=== PATIENT | female | born 1950 | race African-American/Black ===

== ENCOUNTER 2016-06-18 19:53 | Inpatient (IN) | payer OTHER ==
[~2016-06-18] VITALS: Ht 149.9 cm; Wt 66.1 kg
--- NOTE | ~2016-06-18 | EKG ---
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
--- NOTE | ~2016-06-18 | P ---
[facility] [place] [address] PROCEDURE REPORT Name: GOLDENJEAN John Room #: 442-P ADM IN M.R.#: [id number] Admission: 06/18/16 Attend Phys: Dat Son MD Discharge: Date of : 48 Report #: [id number] THIS REPORT FOR: //name// CC: Jacinto Son MD DATE OF SERVICE: 06/19/2016 PROCEDURE PERFORMED: Colonoscopy. HISTORY OF PRESENT ILLNESS: The patient is a 65-year-old female with recent hematochezia. CT scan shows diverticulosis with possible mild to moderate diverticulitis. The patient is on antibiotics at this time. She has had a drop in her hemoglobin. She has had a recent syncopal episode. DESCRIPTION OF PROCEDURE: The risks and benefits of the procedure were explained to the patient, those risks including but not limited to bleeding, perforation, the risk of sedation. She understood these risks and gave informed consent. Sedation was given using propofol per anesthesia. Next, a digital rectal exam was initially performed, which was normal. Next, using a standard Fujinon colonoscope, the scope was placed in the patient's anus and advanced under direct vision to the cecum. The overall prep was good. There was scattered light bright red blood throughout the colon today. The cecum and ileocecal valve were normal in appearance. A few scattered diverticula were noted in the ascending and transverse colon, but no active bleeding, no colitis, otherwise normal. In the descending and mostly in the sigmoid colon, multiple diverticula were noted. There was some surrounding erythema in an area in the sigmoid colon, no purulent drainage was noted. This may be consistent with diverticulitis. There was no active bleeding, but again blood was noted scattered throughout this area. The rectal mucosa was normal on retroflexion, small nonbleeding internal hemorrhoids were also noted. At this point, the scope was then withdrawn and colonoscopy was terminated. Because the patient is on aspirin, I decided to proceed with an upper endoscopy as well. Next, using a standard ESTmobn upper endoscope, the scope was placed in the patient's mouth and advanced under direct vision through the esophagus, stomach and into the second portion of the duodenum. The patient's larynx and esophagus looked normal throughout. The GE junction was normal. Upon entering the stomach, a small hiatal hernia was noted. Overall, the gastric mucosa was normal in the fundus and body; however, in the antrum, several small clean white based ulcers 2-3 mm were noted in size as well as a few erosions. There was no evidence of bleeding. The pylorus was normal and patent. The duodenal bulb, first and second portion were all normal. The scope was then withdrawn and the procedure terminated. The patient tolerated the procedure well. [address] [address] PROCEDURE REPORT Name: FRANKSJEAN Room #: 442-P [facility] IN M.R.#: [id number] Admission: 06/18/16 Attend Phys: Dat Son MD Discharge: Date of : 48 Report #: [id number] IMPRESSION: 1. Small antral ulcers and erosions, no evidence of active bleeding. 2. Otherwise, normal upper endoscopy. RECOMMENDATIONS: 1. Continue antibiotics for diverticulitis. 2. Continue to monitor the patient post-procedure, it appears that bleeding has stopped at this time. 3. Continue PPI therapy. 4. We will check a stool H. pylori antigen test as well. Thank you for allowing me to participate in her care. <ELECTRONICALLY SIGNED> By: Jacinto Crocker MD 06/19/16 1937 1356 1427 Jacinto Crocker MD /nt
--- NOTE | ~2016-06-18 | HC ---
[facility] [place] [address] CONSULTATION Name: FRANKSJEAN D Room #: 442-P [facility] IN ..#: [id number] Admission: 06/18/16 Attend Phys: Dat Son MD Discharge: Date of : 48 Report #: [id number] THIS REPORT FOR: //name// CC: Jacinto PaniaguaRomain Son MD DATE OF SERVICE: 06/19/2016 HISTORY OF PRESENT ILLNESS: The patient is a 65-year-old female with recent syncopal episode. She also complains of bright red blood per rectum, began having bloody stools yesterday and was evaluated in the emergency room. She was complaining of some abdominal pain as well prior to bowel movements. She is on aspirin 325 mg per day. Denies any nausea, vomiting or dysphagia. No significant history of reflux. No history of heartburn. She believes her last colonoscopy was approximately 4 years ago with diverticulosis. ALLERGIES: MACROBID. PAST MEDICAL HISTORY: Hypertension, history of diverticulitis, urinary tract infections and history of cardiac stent placement. MEDICATIONS: At home, amlodipine, vitamin D, estrogen, Prilosec 20 mg every day, Toprol, simethicone, aspirin 325, tramadol, multivitamin and Flonase. REVIEW OF SYSTEMS: As per HPI. SOCIAL HISTORY: She denies any tobacco use. She reports occasional alcohol use. FAMILY HISTORY: Negative for colon cancer. PHYSICAL EXAMINATION: VITAL SIGNS: Temperature is 98.6, pulse 93, blood pressure 138/60 and respiratory rate is 18. GENERAL: She is alert and oriented times 3, in no acute distress. HEENT: Sclerae nonicteric. Oropharynx clear. NECK: Supple, without lymphadenopathy. CARDIOVASCULAR: Regular rate and rhythm. CHEST: Clear to auscultation bilaterally. ABDOMEN: Soft. She is mildly tender to palpation diffusely. Nondistended. Normoactive bowel sounds. EXTREMITIES: No cyanosis, clubbing or edema. LABORATORY DATA: Sodium 146, potassium 4.2, chloride 107, bicarbonate 31, BUN [facility] [address] [place] [address] CONSULTATION Name: JEAN FRANKS Room #: 442-P ADM IN [facility]#: [id number] Admission: 06/18/16 Attend Phys: Dat Son MD Discharge: Date of : 48 Report #: [id number], creatinine 0.8 and glucose 131. AST is 22, total bilirubin 0.3, alkaline phosphatase 74 and ALT 28. Albumin 2.9. Troponin less than 0.04. WBC is 7.1, hemoglobin 10.2 and her hemoglobin was 13.0 on admission and platelet count is 254,000. CT scan of the abdomen and pelvis on admission, diffuse colonic diverticulosis seen more so in the distal descending colon and sigmoid regions, wall thickening and edema in the mid sigmoid colon with slight stranding compatible with diverticulitis and hmpu-az-hkvztrxr diverticulitis. No bowel obstruction noted. ASSESSMENT AND PLAN: Hematochezia, intermittent abdominal pain, suspect diverticular bleed. The patient may have diverticulitis as well. Would recommend proceeding with colonoscopy; she was prepped last evening. We will also proceed with an upper endoscopy as she has had syncopal episodes and has been on aspirin as well. We will make further recommendations after endoscopy. In the meantime, agree with Chelsea and Rafael, which the patient is currently on at this time. Thank you for allowing me to participate in her care. <ELECTRONICALLY SIGNED> By: Jacinto Crocker MD 06/19/16 1931 1353 1409 Jacinto Crocker MD /nt
[~2016-06-18 19:53] MED LIST: AMBEREN; AMLODIPINE BESY10 MG PO; AMOXICILLIN 50500 M1; ASPIRIN325 PO; AUGMENTIN 875875 MG PO; DOXYCYCLINE 10100 MG PO; ESTROVEN REGU400 MCG PO; FLAGYL500 MG PO; GAS-X125 MG PO; LOSARTAN POTAS100 MG PO; LOSARTAN-HCTZ1 EAC1; MEDROL DOSPAK21 TAB PO; MINIPRIN81 MG PO; MOBIC15 MG PO; MUCINEX600 MG PO; NITROGLYCERIN0.4 MG PO; NORCO 5-325 TA1 EACH PO; PERMETHRIN60 GM TOP; PRILOSEC 20 MG20 MG PO; PRILOSEC2.5 MG; TOPROL XL25 MG PO; TRAMADOL 50 MG50 MG PO; TRIAMCINOLONE 080 G3 TOP; TRIAMCINOLONE A15 G1 TP; VITAMIN D400 UNI1; ZANAFLEX2 M1 PO; [UNRECOGNIZED DRUG - REMARK] PO
[2016-06-18 19:54] VITALS: BP 166/64
[2016-06-18] MEDS ORDERED: FLONASE 0.05%50 MCG NASAL (20:22)
[2016-06-18 20:31] LABS: ABSOLUTE NEUTROPHILS 3.4 thou/uL (1.4-8.2); BASOPHILS 0.8 % (0.0-2.0); EOSINOPHILS 1.6 % (0.0-3.0); HEMATOCRIT 31.5 % (37.0-47.0); HEMOGLOBIN 10.7 gm/dL (12.0-15.0); LYMPHOCYTES 35.7 % (24.0-44.0); MCH 28.5 pg (26.0-34.0); MCHC 33.9 % (28.0-37.0); MCV 84.2 fL (80.0-100.0); MONOCYTES 10.4 % (1.0-8.0); PLATELET COUNT 264 thou/uL (150-400); POLYS 51.5 % (36.0-66.0); RBC 3.74 mil/uL (4.20-5.00); RDW 13.5 % (10.5-14.5); WBC 6.5 thou/uL (4.0-11.0)
[2016-06-18 20:32] LABS: MANUAL DIFF NO
[2016-06-18 20:35] LABS: ANION GAP 8 mmol/L (7-16); BUN 17 mg/dL (7-18); CALCIUM 8.9 mg/dL (8.5-10.1); CHLORIDE 105 mmol/L (98-107); CO2 30 mmol/L (21-32); CREATININE 0.9 mg/dL (0.6-1.3); GLUCOSE 155 mg/dL (70-99); POTASSIUM 3.2 mmol/L (3.5-5.1); SODIUM 143 mmol/L (136-145)
[2016-06-18 20:43] LABS: ALBUMIN 3.1 g/dL (3.4-5.0); ALKALINE PHOSPHATASE 77 U/L (46-116); MAGNESIUM 1.5 mg/dL (1.8-2.4); SGOT 30 U/L (15-37); SGPT 33 U/L (30-65); TOTAL BILIRUBIN 0.4 mg/dL (<0.1-1.0); TOTAL PROTEIN 7.2 g/dL (6.4-8.2); TROPONIN-I < 0.04 ng/mL (<0.04-0.07)
[2016-06-18 22:46] VITALS: BP 173/74
[2016-06-18 23:00] VITALS: BP 147/74
[2016-06-19 02:02] LABS: HEMATOCRIT 29.5 % (37.0-47.0); HEMOGLOBIN 9.9 gm/dL (12.0-15.0); MCH 28.4 pg (26.0-34.0); MCHC 33.7 % (28.0-37.0); MCV 84.3 fL (80.0-100.0); RBC 3.5 mil/uL (4.20-5.00); RDW 13.6 % (10.5-14.5); WBC 7.1 thou/uL (4.0-11.0)
[2016-06-19 02:33] LABS: ALBUMIN 2.9 g/dL (3.4-5.0); ALKALINE PHOSPHATASE 74 U/L (46-116); ANION GAP 8 mmol/L (7-16); BUN 13 mg/dL (7-18); CALCIUM 8.8 mg/dL (8.5-10.1); CHLORIDE 107 mmol/L (98-107); CO2 31 mmol/L (21-32); CREATININE 0.8 mg/dL (0.6-1.3); GLUCOSE 131 mg/dL (70-99); POTASSIUM 4.2 mmol/L (3.5-5.1); SGOT 22 U/L (15-37); SGPT 28 U/L (30-65); SODIUM 146 mmol/L (136-145); TOTAL BILIRUBIN 0.3 mg/dL (<0.1-1.0); TOTAL PROTEIN 6.5 g/dL (6.4-8.2); TROPONIN-I < 0.04 ng/mL (<0.04-0.07)
[2016-06-19 04:00] VITALS: BP 179/84
[2016-06-19 07:49] LABS: HEMATOCRIT 30.7 % (37.0-47.0); HEMOGLOBIN 10.2 gm/dL (12.0-15.0)
[2016-06-19 07:57] VITALS: BP 163/94
[2016-06-19 12:00] VITALS: BP 138/60
[2016-06-19 16:00] VITALS: BP 144/100
[2016-06-19 19:34] LABS: HEMOGLOBIN 9.8 gm/dL (12.0-15.0)
[2016-06-19 19:45] VITALS: BP 137/65
[2016-06-20 01:41] LABS: HEMATOCRIT 26.4 % (37.0-47.0); HEMOGLOBIN 8.7 gm/dL (12.0-15.0)
[2016-06-20 03:30] VITALS: BP 133/59
[2016-06-20 08:25] VITALS: BP 135/73
[2016-06-20 11:35] VITALS: BP 132/78
[2016-06-20 16:50] VITALS: BP 141/75
[2016-06-20 20:11] VITALS: BP 144/73
[2016-06-21 03:58] VITALS: BP 136/78
[2016-06-21 04:42] LABS: HEMATOCRIT 25.9 % (37.0-47.0); HEMOGLOBIN 8.6 gm/dL (12.0-15.0); MCH 28.5 pg (26.0-34.0); MCHC 33.1 % (28.0-37.0); PLATELET COUNT 235 thou/uL (150-400); RBC 3.02 mil/uL (4.20-5.00); RDW 13.7 % (10.5-14.5); WBC 4.6 thou/uL (4.0-11.0)
[2016-06-21 04:44] LABS: MANUAL DIFF YES
[2016-06-21 04:55] LABS: CALCIUM 8.9 mg/dL (8.5-10.1); CREATININE 0.9 mg/dL (0.6-1.3); POTASSIUM 3.6 mmol/L (3.5-5.1)
[2016-06-21 07:02] LABS: ABSOLUTE NEUTROPHILS 2.3 thou/uL (1.4-8.2); PLATELET ESTIMATE NORMAL; TOTAL CELL COUNT 100
[2016-06-21 08:19] VITALS: BP 149/94
[2016-06-21] MEDS ORDERED: PANTOPRAZOLE SO40 M1 PO (09:05)
[2016-06-21] MEDS ORDERED: CIPRO500 MG PO (09:05)
[2016-06-21] MEDS ORDERED: FLAGYL 250 MG250 MG PO (09:05)
[2016-06-21 12:31] VITALS: BP 170/92
[2016-06-21 16:54] VITALS: BP 137/86
[2016-06-21 20:05] VITALS: BP 144/79
[2016-06-22 05:02] VITALS: BP 122/79
[2016-06-22 08:00] VITALS: BP 177/94
[2016-06-22 10:35] VITALS: BP 122/79
[2016-06-22 14:25] VITALS: BP 122/79
[2016-06-22 15:27] LABS: HEMATOCRIT 29.9 % (37.0-47.0); HEMOGLOBIN 10.1 gm/dL (12.0-15.0)
== END 2016-06-22 16:20 | disposition home or self-care (01) | DRG 378 ==
LOC: ER 19:53 → 4S 21:42 → EROBS 21:42 → 4S 22:47
PROVIDERS: Emergency Medicine; Family Medicine; Nurse Practitioner Acute Care
PROC: 0DJ08ZZ Inspection of Upper Intestinal Tract, Via Natural or Artificial Opening Endoscopic (ICD-10-PCS; principal; 2016-06-19)
PROC: 0DJD8ZZ Inspection of Lower Intestinal Tract, Via Natural or Artificial Opening Endoscopic (ICD-10-PCS; principal; 2016-06-19)
DX: K57.33 Diverticulitis of large intestine without perforation or abscess with bleeding (principal); D62 Acute posthemorrhagic anemia; R55 Syncope and collapse; D64.9 Anemia, unspecified; E87.6 Hypokalemia; I10 Essential (primary) hypertension; E83.42 Hypomagnesemia; I25.10 Atherosclerotic heart disease of native coronary artery without angina pectoris; M17.10 Unilateral primary osteoarthritis, unspecified knee; K92.1 Melena; K25.4 Chronic or unspecified gastric ulcer with hemorrhage; Z79.82 Long term (current) use of aspirin; Z95.5 Presence of coronary angioplasty implant and graft; Z88.1 Allergy status to other antibiotic agents; Z23 Encounter for immunization
CPT/HCPCS: 10100; 62110; 62900; 70005

== ENCOUNTER 2017-06-04 03:50 | Emergency (ER) | payer OTHER ==
[~2017-06-04] VITALS: Ht 149.9 cm; Wt 69.8 kg
--- NOTE | ~2017-06-04 | EEG ---
[facility] [address] [place] [address] ELECTROENCEPHALOGRAM Name: JEAN FRANKS [id number] Admission: 06/04/17 Attend Phys: Discharge: 06/04/17 Date of : 48 Report #: [id number] THIS REPORT FOR: //name// CC: Kelly Contreras DATE OF SERVICE: 06/04/2017 This patient is being evaluated for seizure disorder. EEG is being done to further evaluate that. EEG was done by placing the electrodes by standard 10-20 system of electrode placement. Both referential and sequential montages were used for recording. Background activity in this patient's EEG is about 9-10 Hz and 30 microvolt. It is a symmetrical activity. Photic stimulation was unremarkable. Part of the EEG is slow, indicating that she may be asleep that time, but the patient is not very responsive to be certain about that. Throughout the record, no active epileptiform activity was noticed. IMPRESSION: In spite of the patient's seizures, the EEG did not show any active epileptiform activity. It might be mentioned that EEG can be normal in a patient with a seizure disorder and therefore further workup is recommended. Thank you very much for this referral. <ELECTRONICALLY SIGNED> By: Christian Ross MD 06/11/17 0944 1457 1510 Christian Ross MD /sadie
--- NOTE | ~2017-06-04 | EKG ---
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
[~2017-06-04 03:50] MED LIST changes: +CIPRO500 MG PO; +FLAGYL 250 MG250 MG PO; +FLONASE 0.05%50 MCG NASAL; +PANTOPRAZOLE SO40 M1 PO
[2017-06-04 03:51] VITALS: BP 140/86
[2017-06-04 04:37] LABS: HEMATOCRIT 35.3 % (37.0-47.0); HEMOGLOBIN 11.6 gm/dL (12.0-15.0); MCH 28.4 pg (26.0-34.0); MCV 86.1 fL (80.0-100.0); RBC 4.1 mil/uL (4.20-5.00); RDW 15.5 % (10.5-14.5); WBC 4.9 thou/uL (4.0-11.0)
[2017-06-04 04:45] LABS: CALCIUM 9.5 mg/dL (8.5-10.1); CREATININE 0.8 mg/dL (0.6-1.0); POTASSIUM 3.2 mmol/L (3.5-5.1)
[2017-06-04 04:45] LABS: URINE BILIRUBIN NEGATIVE (Negative); URINE BLOOD TRACE (Negative); URINE COLOR YELLOW; URINE GLUCOSE-RANDOM* NEGATIVE (Negative); URINE KETONES NEGATIVE (Negative); URINE LEUKOCYTES-REFLEX NEGATIVE (Negative); URINE PROTEIN (DIPSTICK) NEGATIVE (Negative); URINE UROBILINOGEN 0.2 E.U./dl (0.2-1.0)
[2017-06-04 04:54] LABS: TROPONIN-I 0.04 ng/mL (<0.06)
[2017-06-04 05:02] LABS: AMP/METHAMP Negative (Negative); BARBITURATES Negative (Negative); BENZODIAZEPINES POSITIVE (Negative); COCAINE Negative (Negative); METHADONE Negative (Negative); OPIATES Negative (Negative); PCP Negative (Negative)
[2017-06-04 06:55] VITALS: BP 145/85
[2017-06-04 08:53] VITALS: BP 180/81
== END 2017-06-04 08:54 | disposition short-term general hospital (02) ==
LOC: ER 03:50 → EROBS 06:08
PROVIDERS: Emergency Medicine
DX: R41.82 Altered mental status, unspecified (principal); G40.89 Other seizures; I10 Essential (primary) hypertension; M19.90 Unspecified osteoarthritis, unspecified site; Z87.440 Personal history of urinary (tract) infections; Z88.8 Allergy status to other drugs, medicaments and biological substances

== ENCOUNTER 2017-08-30 10:21 | Inpatient (IN) | payer OTHER ==
[~2017-08-30] VITALS: Ht 160 cm; Wt 70.8 kg
--- NOTE | ~2017-08-30 | HC ---
[facility] [place] [address] CONSULTATION Name: GOLDENJEAN John Room #: 434-P [facility] IN .R.#: [id number] Admission: 08/30/17 Attend Phys: Frankie Doshi Discharge: Date of : 48 Report #: [id number] THIS REPORT FOR: //name// CC: Frankie Singh MD DATE OF SERVICE: 08/30/2017 CHIEF COMPLAINT: The patient is a 67-year-old woman with findings of diverticulitis and diverticular abscess. HISTORY OF PRESENT ILLNESS: This is a 67-year-old woman who noted the onset of diffuse abdominal pain starting about 3 days ago. She points from the epigastrium, rubs her hand all the way down to the suprapubic area and says she has pain in that entire area. The pain became more intense. She reported some chills, but did not have any fever. She did not have any change in bowel habits or rectal bleeding. Due to the symptoms, she presented to the Emergency Room at [facility] and she was evaluated. Laboratory studies revealed a white count of 7.3, hemoglobin 12.9, platelet count of 336,000. Electrolytes noted for potassium 3.3, otherwise normal. Lactic acid was 0.8. LFTs were normal, albumin 3.5, lipase of 56. She reports when she presented to the Emergency Room, she also developed chest pain and she underwent a CT angio of the chest and abdomen. This study revealed abnormal thickening of the sigmoid colon thought to be related to diverticulitis and a suspected contained abscess in the region of the sigmoid colon. There was no evidence of PE or acute vascular events. The patient actually had rectal bleeding a year ago in July and was scoped by Dr. Crocker. Colonoscopy for rectal bleeding revealed diverticulitis and she was treated with antibiotics. It was presumed she had bleeding from her diverticular disease. She does not recall those events in particular. Up until 3 days ago she had no GI complaints. PAST MEDICAL HISTORY: She has had coronary artery disease with previous stent placement at [facility]. Apparently, she had a cardiac arrest, she was on a ventilator for several weeks and she also apparently had a stroke at that time, she has had some memory difficulties since then. She has been on aspirin and Plavix. She also has reflux disease for which she takes Prilosec. She has high blood pressure, degenerative joint disease and sinus infections. She had a positive skin test in the past and was treated prophylactically for TB in the 1970s. PAST SURGICAL HISTORY: She had stents placed. She also had a CSF leak in the [facility] [address] [place] [address] CONSULTATION Name: JEAN FRANKS Room #: 434-P [facility] IN ..#: [id number] Admission: 08/30/17 Attend Phys: Frankie Doshi Discharge: Date of : 48 Report #: [id number] maxillary sinus, required a patch. In addition, she had a cholecystectomy. ALLERGIES: NITROFURANTOIN. MEDICATIONS: Usual home medicines, amlodipine 10 mg daily, Cipro 500 mg twice daily for 10 days, I do not think she had that recently; vitamin D 1200 mg daily, Flonase, metoprolol 25 mg daily, metronidazole 250 mg 4 times daily for 10 days, I think that is an old one as well, multivitamins, nitroglycerin, pantoprazole 40 mg daily, simethicone as needed, tramadol as needed. It is noted that the patient cannot tell me her medications, but said that, I believe, her daughter had a list, this above list is taken from the computer. FAMILY HISTORY: No family history of colon cancer or ulcer disease. SOCIAL HISTORY: Never smoked, drinks on occasion. REVIEW OF SYSTEMS: GENERAL: No change in weight. She had some chills, but no fever. CENTRAL NERVOUS SYSTEM: She had seizures after her stroke, but not recently. ENT: CSF leak with patch in the maxillary sinus. PULMONARY: Positive PPD, treated in the past. CARDIOVASCULAR: Recent chest pain, which is better at this time, known coronary artery disease with stents. GASTROINTESTINAL: Previous diverticulitis, but she does not recall previous rectal bleeding and known diverticular disease. GENITOURINARY: Without dysuria or pyuria. MUSCULOSKELETAL: She does have arthralgias. SKIN: Without rashes. PSYCHIATRIC: Memory loss. No depression or anxiety. ENDOCRINE: She is not aware of diabetes or thyroid problems. HEMATOLOGIC: No bleeding, bruising or malignancies. PHYSICAL EXAMINATION: GENERAL: Well-developed, well-nourished, pleasant woman who is awake, alert and oriented, no acute distress. VITAL SIGNS: Blood pressure 161/73, pulse of 86. HEENT: Anicteric. Pupils equal and round. Oropharynx clear. NECK: Supple. CHEST: Clear. HEART: Regular rate and rhythm, normal S1, normal S2. ABDOMEN: Normal bowel sounds, soft. She has modest diffuse tenderness. No rebound or rigidity. No masses. She has a benign abdomen. RECTAL: Not done. EXTREMITIES: Without cyanosis, clubbing, edema. ASSESSMENT: [facility] [address] [place] [address] CONSULTATION Name: JEAN FRANKS Room #: 434-P [facility] IN .R.#: [id number] Admission: 08/30/17 Attend Phys: Frankie Garcia Nubia Discharge: Date of : 48 Report #: [id number] 1. Diverticulitis with probable abscess. 2. Coronary artery disease. 3. Cerebrovascular accident following a cardiac arrest. 4. Status post cholecystectomy. 5. Prior history of rectal bleeding, probably diverticular disease. PLAN: 1. Agree with antibiotics. 2. Agree with surgical consultation. 3. Consider colonoscopy, although she had her last colonoscopy a little more than a year ago. At this point in time, I would not necessarily pursue a colonoscopy in the face of acute diverticulitis and possibly an abscess. However, it could be considered later. <ELECTRONICALLY SIGNED> By: Jakob Daniel MD 08/31/17 1408 1545 1817 Jakob Daniel MD /nt
--- NOTE | ~2017-08-30 | EKG ---
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[facility] : 1950 Requested By: Seymour Ericksno Order Number: [id number] MD: Casey Fontana Measurements Intervals [place] Rate: 84 P: -8 [place]: 151 QRS: 5 QRSD: 92 T: 60 QT: 405 QTc: 479 Interpretive Statements Sinus rhythm LVH with secondary repolarization abnormality Baseline wander in lead(s) V4 Compared to ECG 06/04/2017 03:59:11 No significant changes Electronically Signed On 08-31-2017 13:43:45 CDT by Casey Fontana [email or web address] <ELECTRONICALLY SIGNED> By: Casey Fontana MD, [facility] 08/31/17 1343 1100 1100 Casey Fontana MD, FAC /EPI
[2017-08-30 10:27] VITALS: BP 157/89
[2017-08-30 11:05] LABS: ABSOLUTE NEUTROPHILS 5.2 thou/uL (1.4-8.2); BASOPHILS 0.5 % (0.0-2.0); EOSINOPHILS 0.1 % (0.0-3.0); HEMATOCRIT 38.1 % (37.0-47.0); HEMOGLOBIN 12.9 gm/dL (12.0-15.0); LYMPHOCYTES 16.7 % (24.0-44.0); MCH 28.8 pg (26.0-34.0); MCHC 33.9 g/dL (28.0-37.0); MCV 84.9 fL (80.0-100.0); MONOCYTES 11.9 % (1.0-8.0); PLATELET COUNT 336 thou/uL (150-400); POLYS 70.8 % (36.0-66.0); RBC 4.49 mil/uL (4.20-5.00); RDW 14.9 % (10.5-14.5); WBC 7.3 thou/uL (4.0-11.0)
[2017-08-30 11:14] LABS: ANION GAP 10 mmol/L (7-16); BUN 10 mg/dL (7-18); CALCIUM 9.8 mg/dL (8.5-10.1); CHLORIDE 102 mmol/L (98-107); CO2 28 mmol/L (21-32); CREATININE 0.9 mg/dL (0.6-1.0); GLUCOSE 126 mg/dL (74-106); POTASSIUM 3.3 mmol/L (3.5-5.1); SODIUM 140 mmol/L (136-145)
[2017-08-30 11:24] LABS: ALBUMIN 3.5 g/dL (3.4-5.0); LIPASE 56 U/L (73-393); SGOT 17 U/L (15-37); SGPT 19 U/L (30-65); TOTAL PROTEIN 8.4 g/dL (6.4-8.2); TROPONIN-I < 0.04 ng/mL (<0.06)
[2017-08-30 12:10] LABS: URINE BILIRUBIN NEGATIVE (Negative); URINE BLOOD 1+ (Negative); URINE CLARITY CLEAR; URINE COLOR YELLOW; URINE GLUCOSE-RANDOM* NEGATIVE (Negative); URINE KETONES NEGATIVE (Negative); URINE LEUKOCYTES-REFLEX NEGATIVE (Negative); URINE NITRITE-REFLEX NEGATIVE (Negative); URINE PROTEIN (DIPSTICK) NEGATIVE (Negative); URINE SPECIFIC GRAVITY <= 1.005 (1.005-1.035); URINE UROBILINOGEN 0.2 E.U./dl (0.2-1.0)
[2017-08-30 12:20] LABS: BACTERIA-REFLEX None Seen /HPF (None Seen); CASTS None Seen /LPF (None Seen); CRYSTALS None Seen /LPF (None Seen); SQUAMOUS 0-3 Few /LPF (0-3); URINE RBC None Seen /HPF (0-2); URINE WBC-REFLEX 0-5 Rare /HPF (0-5)
[2017-08-30 12:52] VITALS: BP 168/84
[2017-08-30 13:26] VITALS: BP 161/73
[2017-08-30 15:44] VITALS: BP 163/73
[2017-08-30 19:18] VITALS: BP 146/71
[2017-08-31 04:07] VITALS: BP 96/53
[2017-08-31 05:27] LABS: HEMATOCRIT 31.6 % (37.0-47.0); MCH 28.8 pg (26.0-34.0); MCHC 33.9 g/dL (28.0-37.0); MCV 84.9 fL (80.0-100.0); RBC 3.72 mil/uL (4.20-5.00); RDW 15.2 % (10.5-14.5); WBC 5.8 thou/uL (4.0-11.0)
[2017-08-31 05:47] LABS: HEMOGLOBIN 10.7 gm/dL (12.0-15.0)
[2017-08-31 07:23] VITALS: BP 115/59
[2017-08-31 16:27] VITALS: BP 112/46
[2017-08-31 19:54] VITALS: BP 148/71
[2017-09-01 04:17] VITALS: BP 117/62
[2017-09-01 07:55] VITALS: BP 134/64
[2017-09-01 20:30] VITALS: BP 170/86
[2017-09-02 08:16] VITALS: BP 149/79
[2017-09-02] MEDS ORDERED: AUGMENTIN 875-1 EACH PO (09:05)
[2017-09-02] MEDS ORDERED: ACIDOPHILUS1 EAC3 PO (09:05)
[2017-09-02] MEDS ORDERED: MIRALAX17 GM PO (09:06)
[2017-09-02] MEDS ORDERED: CLOPIDOGREL75 MG PO (09:06)
[2017-09-02 10:42] VITALS: BP 149/79
== END 2017-09-02 11:41 | disposition home or self-care (01) | DRG 871 ==
LOC: ER 10:21 → SICU 12:25 → 4S 12:25 → EROBS 12:25 → 4S 13:33 → SICU 09-01 17:59 → ENTRNSPT 09-02 11:20 → EDTRNSPTSTS 09-02 11:25 → SICU 09-02 11:41
PROVIDERS: Emergency Medicine; Hospitalist
DX: A41.9 Sepsis, unspecified organism (principal); E43 Unspecified severe protein-calorie malnutrition; I63.9 Cerebral infarction, unspecified; I46.9 Cardiac arrest, cause unspecified; K57.20 Diverticulitis of large intestine with perforation and abscess without bleeding; I10 Essential (primary) hypertension; M19.90 Unspecified osteoarthritis, unspecified site; I25.10 Atherosclerotic heart disease of native coronary artery without angina pectoris; K59.00 Constipation, unspecified; K21.9 Gastro-esophageal reflux disease without esophagitis; Z90.49 Acquired absence of other specified parts of digestive tract; Z79.899 Other long term (current) drug therapy; Z88.8 Allergy status to other drugs, medicaments and biological substances; Z80.0 Family history of malignant neoplasm of digestive organs; Z68.27 Body mass index [BMI] 27.0-27.9, adult
CPT/HCPCS: 10195; 15000